=== PATIENT | female | born 1980 | race Caucasian/White ===

== ENCOUNTER 2021-05-26 17:09 | Emergency (ER) | payer MEDICAID, SELFPAY ==
--- NOTE | 2021-05-26 | ECG_ITS ---
Test Reason : NUMBNESS Blood Pressure : / mmHG Vent. Rate : 088 BPM Atrial Rate : 088 BPM P-R Int : 154 ms QRS Dur : 082 ms QT Int : 392 ms P-R-T Axes : 047 105 034 degrees QTc Int : 474 ms Normal sinus rhythm Rightward axis Left atrial enlargement Borderline ECG No previous ECGs available Referred By: Generic ED Physician Electronically Signed By:VEDA TRENT MD
[2021-05-26 17:21] VITALS: BP 180/110; PULSE 106; O2SAT 98
[2021-05-26 20:32] VITALS: BP 160/93; PULSE 91; RESP 18; TEMP 36.8; O2SAT 100; BMI 34.7
[2021-05-26] MEDS: Acetaminophen 325 MG TABLET 650 MG PO (20:42)
--- NOTE | 2021-05-26 21:30 | ED_ITS ---
HPI - General Adult General Chief complaint: General Medical Stated complaint: HEADACHE/NUMBNESS Time Seen by Provider: 05/26/21 21:27 Source: patient Mode of arrival: ambulatory Limitations: no limitations History of Present Illness MD complaint: depressed under stress Onset (ago): month(s) Severity: moderate Relieving factors: none Exacerbating factors: other (life stress) Associated symptoms: denies other symptoms Treatments prior to arrival: none Related Data Previous Rx's Medication Instructions Recorded lorazepam 1 mg tablet (Ativan) 1 mg PO BID PRN #10 tab 05/26/21 Allergies Allergy/AdvReac Type Severity Reaction Status Date / Time seafood Allergy Severe Anaphylaxis Verified 05/26/21 20:32 Review of Systems Review of Systems: Constitutional : No Fever, No Chills ENT/Mouth : No Ear Pain, No Nasal Congestion, No sore throat Eyes: No Eye Pain, No Swelling, No Redness Cardiovascular : No Chest Pain, No SOB Respiratory : No Cough, No Sputum, No Dyspnea Gastrointestinal : No Nausea, No Vomiting, No Diarrhea, No Hematochezia, No Melena Genitourinary : No Dysuria, No Urinary Frequency, No Hematuria Musculoskeletal : No Myalgias Skin : No Skin Lesions, No rash Neuro : No Weakness, No Numbness, No Paresthesias, No Dizziness, No Headache Psych : positive Anxiety, positive Depression, no SI/HI Heme/Lymph: No Lymphadenopathy Endocrine : No Polyuria, No Polydipsia All other systems reviewed and are negative [facility] Past Medical History Attestation statement: The following information was validated with the patient. Medical History Anxiety Bipolar disorder Depression Diabetes Hypertension Migraines PTSD (post-traumatic stress disorder) Social History Social History (Updated 05/26/21 @ 22:04 by Marry Boswell DO) Patient Tobacco Use Status: Never used Tobacco Advance Directives: No Advance Directives Information Provided: Yes Patient : No Physical Exam Vital Signs: Vital Signs: Last Vital Signs Temp 98.3 F 05/26/21 20:32 Pulse 91 05/26/21 20:32 Resp 18 05/26/21 20:32 BP 160/93 H 05/26/21 20:32 Pulse Ox 100 05/26/21 20:32 Body Mass Index 34.7 Appearance: Alert. Oriented X3. No acute distress. Eyes: Pupils equal, round and reactive to light. ENT: Pharynx normal. Neck: Normal inspection. Neck supple. CVS: Normal heart rate and rhythm. Pulses normal. Respiratory: No respiratory distress. Breath sounds normal. Abdomen: Soft and non-tender. Skin: Skin warm and dry. Normal skin color. Normal skin turgor. Extremities: No lower extremity edema. No calf ttp Neuro: Oriented X 3. No motor deficit. No sensory deficit. Course Course Course Narrative: treat anxiety, partial program in the works, care team will refer to therapy Medical Decision Making MDM Narrative Medical decision making narrative: 40 yo female under sig stress here with depression due to difficult life situations - she has no active SI but has had some fleeting thoughts but not self harm - at this time will offer care team consult Discharge Plan Discharge Clinical Impression: Anxiety Patient Disposition: Home, Self-Care Instructions: Anxiety (ED) Additional Instructions: return to ED for any worsening symptoms or concerns please follow up with the CARE team Prescriptions: New lorazepam [Ativan] 1 mg tablet 1 mg PO BID PRN (Reason: anxiety) Qty: 10 RF: 0
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
[2021-05-26] MEDS: LORazepam 1 MG TABLET PO (23:16)
== END 2021-05-26 23:17 | disposition home or self-care (01) ==
PROVIDERS: Emergency Provider Emergency Medicine
DX: R51.9 Headache, unspecified (principal); F33.1 Major depressive disorder, recurrent, moderate; F43.9 Reaction to severe stress, unspecified; Z71.6 Tobacco abuse counseling; Z79.899 Other long term (current) drug therapy
CPT/HCPCS: 93005; 99283

== ENCOUNTER 2022-05-16 16:48 | Emergency (ER) | payer MEDICAID, SELFPAY ==
--- NOTE | ~2022-05-16 | XR_ITS ---
EXAMINATION: THORACIC SPINE AND RIGHT ANKLE. CLINICAL INFORMATION: Fall. Pain. COMPARISON: None TECHNIQUE: Thoracic spine 3 views. Right ankle 3 views. FINDINGS: Thoracic spine: There is normal thoracic kyphosis. The vertebral heights, alignment and disc heights are normal. There is no visible acute fracture, dislocation or subluxation seen. There is mild ventral spondylosis. Right ankle: The ankle mortise and the subtalar joints are normal. No visible fracture, dislocation or subluxation seen. A small retrocalcaneal heel enthesophyte. There is mild lateral malleolar soft tissue swelling XR/XR ankle RT min 3V IMPRESSION: No acute fracture or dislocation thoracic spine. There is mild spondylosis lower dorsal spine. No acute fracture or dislocation right ankle. There is mild lateral malleolar soft tissue swelling likely ligamentous injury. There is a retrocalcaneal small enthesophyte..
--- NOTE | ~2022-05-16 | XR_ITS ---
EXAMINATION: THORACIC SPINE AND RIGHT ANKLE. CLINICAL INFORMATION: Fall. Pain. COMPARISON: None TECHNIQUE: Thoracic spine 3 views. Right ankle 3 views. FINDINGS: Thoracic spine: There is normal thoracic kyphosis. The vertebral heights, alignment and disc heights are normal. There is no visible acute fracture, dislocation or subluxation seen. There is mild ventral spondylosis. Right ankle: The ankle mortise and the subtalar joints are normal. No visible fracture, dislocation or subluxation seen. A small retrocalcaneal heel enthesophyte. There is mild lateral malleolar soft tissue swelling XR/XR thoracic spine 3V IMPRESSION: No acute fracture or dislocation thoracic spine. There is mild spondylosis lower dorsal spine. No acute fracture or dislocation right ankle. There is mild lateral malleolar soft tissue swelling likely ligamentous injury. There is a retrocalcaneal small enthesophyte..
[2022-05-16 18:06] VITALS: BP 141/83; PULSE 83; RESP 16; TEMP 36.3; O2SAT 97; BMI 32.8
--- NOTE | 2022-05-16 21:02 | ED.GENADULT ---
HPI - General Adult General Chief complaint: Fall Stated complaint: Fall , right ankle swollen , back apin Time Seen by Provider: 05/16/22 20:44 Source: patient Mode of arrival: ambulatory Limitations: no limitations History of Present Illness HPI narrative: Patient comes to emergency room complaining right ankle pain and swelling in back pain in the midback. Patient states that she had a mechanical fall, fell down 3 steps. Patient denies hitting her head or loss of consciousness. Patient states that she took gabapentin and ibuprofen at home. Patient did not hit her head, no loss of consciousness, patient is not on any blood thinners. Related Data Previous Rx's Medication Instructions Recorded lorazepam 1 mg tablet (Ativan) 1 mg PO BID PRN anxiety #10 tabs 05/26/21 cyclobenzaprine 5 mg tablet 5 mg PO BID PRN muscle spasm #6 05/16/22 tabs ketorolac 10 mg tablet 10 mg PO BID PRN pain #6 tabs 05/16/22 Allergies Allergy/AdvReac Type Severity Reaction Status Date / Time seafood Allergy Severe Anaphylaxis Verified 05/26/21 20:32 Review of Systems Review of Systems: Constitutional : No Weight loss, No Fever, No Chills, No Night Sweats, No Fatigue, No Malaise ENT/Mouth : No Hearing loss, No Ear Pain, No Nasal Congestion, No Sinus Pain, No Hoarseness, No sore throat, No Rhinorrhea, No Swallowing Difficulty Eyes: No Eye Pain, No Swelling, No Redness, No Foreign Body, No Discharge, No Vision Changes Cardiovascular : No Chest Pain, No SOB, No Dyspnea on Exertion, No Orthopnea, No Edema, No Palpitations Respiratory : No Cough, No Sputum, No Wheezing, No Smoke Exposure, No Dyspnea Gastrointestinal : No Nausea, No Vomiting, No Diarrhea, No Constipation, No abdominal Pain, No Hematochezia, No Melena Genitourinary : no irregular bleeding, No Dysuria, No Urinary Frequency, No Hematuria, No Urinary Incontinence, No Urgency, No Flank Pain, No Urinary Flow Changes, No Hesitancy Musculoskeletal : Complaining of right ankle pain and middle back pain No Myalgias, No Joint Swelling Skin : No Skin Lesions, No rash Neuro : No Weakness, No Numbness, No Paresthesias, No Loss of Consciousness, No Dizziness, No Headache Psych : No Anxiety/Panic, No Depression, No SI/HI/AH/VH, No Social Issues, Heme/Lymph: No Bruising, No Bleeding,No Lymphadenopathy Endocrine : No Polyuria, No Polydipsia, No Temperature Intolerance [facility] Past Medical History Medical History Anxiety Bipolar disorder Depression Diabetes Hypertension Migraines PTSD (post-traumatic stress disorder) Social History Social History (Updated 05/26/21 @ 22:04 by Jacqueline Boswell DO) Patient Tobacco Use Status: Never used Tobacco Advance Directives: No Physical Exam ED Vital Signs: Vital Signs - 24 hr 05/16/22 18:06 Temperature 97.4 F Pulse Rate 83 Respiratory Rate 16 Blood Pressure 141/83 H Pulse Oximetry 97 Oxygen Delivery Method Room Air BMI result Body Mass Index 32.8 Const Other: Appearance: Alert. Oriented X3. No acute distress. Eyes: Pupils equal, round and reactive to light. ENT: Pharynx normal. Neck: Normal inspection. Neck supple. No lymph nodes noted. No crepitus CVS: Normal heart rate and rhythm. Pulses normal. Normal S1 and S2 Respiratory: No respiratory distress. Breath sounds normal. No Wheezing. No rales Abdomen: Soft and nontender. No rigidity. No distention. Back: No palpable step-offs, no C-spine tenderness or thoracic spine tenderness. Skin: Skin warm and dry. Normal skin color. Normal skin turgor. Extremities: No lower extremity edema. Patient does have swelling along the right lateral malleolus, no significant pain to palpation, patient is able to bear weight and walk with steady gait Neuro: Oriented X 3. No motor deficit. No sensory deficit. Moving all extremities. No slurred speech. CN 2 through 12 grossly intact Psych: calm, cooperative, normal affect Course Course Course Narrative: I discussed the x-rays with the patient, no acute findings. Patient's pain likely musculoskeletal prove patient was given 1 dose of IM Toradol. Medical Decision Making Imaging Data Thoracic spine and right ankle x-rays: Radiologist's impression: [address] [address] XRay Report Signed Patient: Tangela Clinton MR#: [id number] : 1980 Acct:[id number] Age/Sex: 41 / F ADM Date: 05/16/22 Loc: HO.ED Attending Dr: Ordering Physician: Saw ED Physician Date of Service: 05/16/22 Procedure(s): XR thoracic spine 3V Accession Number(s): [id number] cc: Generic ED Physician~ EXAMINATION: THORACIC SPINE AND RIGHT ANKLE. CLINICAL INFORMATION: Fall. Pain.? COMPARISON: None? TECHNIQUE: Thoracic spine 3 views. Right ankle 3 views.? FINDINGS: Thoracic spine: There is normal thoracic kyphosis. The vertebral heights, alignment and disc heights are normal. There is no visible acute fracture, dislocation or subluxation seen. There is mild ventral spondylosis. Right ankle: The ankle mortise and the subtalar joints are normal. No visible fracture, dislocation or subluxation seen. A small retrocalcaneal heel enthesophyte. There is mild lateral malleolar soft tissue swelling XR/XR thoracic spine 3V IMPRESSION: No acute fracture or dislocation thoracic spine. There is mild spondylosis lower dorsal spine. ? No acute fracture or dislocation right ankle. There is mild lateral malleolar soft tissue swelling likely ligamentous injury. There is a retrocalcaneal small enthesophyte.. Discharge Plan Discharge Clinical Impression: Fall, Ankle pain, right, Back pain, thoracic Patient Disposition: Home, Self-Care Instructions: Back Pain (ED), Swollen Joint (ED) Additional Instructions: Please follow-up with your primary care physician tomorrow. If you have any worsening or new symptoms, please return to the emergency room or call 911 Prescriptions: New ketorolac 10 mg tablet 10 mg PO BID PRN (Reason: pain) Qty: 6 0RF Rx Instructions: Do not use this medication with ibuprofen/NSAIDs. Only use Tylenol if needed cyclobenzaprine 5 mg tablet 5 mg PO BID PRN (Reason: muscle spasm) Qty: 6 0RF No Action lorazepam [Ativan] 1 mg tablet 1 mg PO BID PRN (Reason: anxiety) Qty: 10 0RF
[2022-05-16] MEDS: Ketorolac Tromethamine 60 MG/2 ML VIAL IM (21:07)
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
== END 2022-05-16 21:32 | disposition home or self-care (01) ==
PROVIDERS: Emergency Provider Emergency Medicine; PCP Nurse Practitioner Family
DX: M25.571 Pain in right ankle and joints of right foot (principal); M54.50 Low back pain, unspecified; M54.6 Pain in thoracic spine
CPT/HCPCS: 72072; 73610; 96372; 99283; 99284; J1885

== ENCOUNTER 2022-06-19 19:28 | Emergency (ER) | payer MEDICAID, SELFPAY ==
[2022-06-19 20:46] VITALS: BP 154/89; PULSE 99; RESP 18; TEMP 36.7; O2SAT 99; BMI 32.2
[2022-06-20 00:46] VITALS: BP 126/77; PULSE 86; RESP 16; TEMP 36.7; O2SAT 98
[2022-06-20 04:00] VITALS: BP 136/78; PULSE 86; RESP 17; TEMP 36.9; O2SAT 98
--- NOTE | 2022-06-20 04:35 | ED_ITS ---
HPI - Skin/Abscess/Foreign Bdy General Chief complaint: Skin/Abscess/Foreign Body Stated complaint: ?vaginal cyst Time Seen by Provider: 06/20/22 02:18 Source: patient Mode of arrival: ambulatory Limitations: no limitations History of Present Illness HPI narrative: 41-year-old female came in for evaluation of abscess in the pubic area on right side after shaved last week, patient with known history of abscesses in different areas of her body. No fever, no chills. Symptoms started 4 days ago. No risk for STD, no vaginal discharge. Related Data Previous Rx's Medication Instructions Recorded lorazepam 1 mg tablet (Ativan) 1 mg PO BID PRN anxiety #10 tabs 05/26/21 cyclobenzaprine 5 mg tablet 5 mg PO BID PRN muscle spasm #6 05/16/22 tabs ketorolac 10 mg tablet 10 mg PO BID PRN pain #6 tabs 05/16/22 doxycycline hyclate 100 mg capsule 100 mg PO BID #14 caps 06/20/22 Allergies Allergy/AdvReac Type Severity Reaction Status Date / Time seafood Allergy Severe Anaphylaxis Verified 06/19/22 20:52 Review of Systems Review of Systems: All other systems are reviewed and are negative Constitutional: Reports as per HPI and Reports no additional constitutional complaints Eyes: Reports as per HPI and Reports no additional eye complaints Reports system reviewed and no additional complaints, except as documented Cardiovascular: Reports as per HPI and Reports no additional cardiovascular complaints Respiratory: Reports as per HPI and Reports no additional respiratory complaints Gastrointestinal: Reports as per HPI and Reports no additional gastrointestinal complaints Genitourinary: Reports no additional female genitourinary complaints Musculoskeletal: Reports no additional musculoskeletal complaints Skin/Breast: Reports system reviewed and no additional complaints, except as docu Psychiatric: Reports no additional psychiatric complaints Endocrine: Reports no additional endocrine complaints Hematologic/Lymphatic: Reports no additional hematologic/lymphatic complaints Allergic/Immunologic: Reports no additional allergic/immunologic complaints Reports system reviewed and no additional complaints, except as documented and Reports Abnormal speech present [facility] Past Medical History Medical History Anxiety Bipolar disorder Depression Diabetes Hypertension Migraines PTSD (post-traumatic stress disorder) Social History Social History Patient Tobacco Use Status: Never used Tobacco Advance Directives: No Advance Directives Information Provided: No Physical Exam Vital Signs: Vital Signs: Last Vital Signs Temp 98.5 F 06/20/22 04:00 Pulse 86 06/20/22 04:00 Resp 17 06/20/22 04:00 BP 136/78 06/20/22 04:00 Pulse Ox 98 06/20/22 04:00 O2 Del Method 06/20/22 04:00 BMI result Body Mass Index 32.2 Vital signs have been reviewed as appeared to be correct. Blood pressure normal. Heart rate normal. Respiration rate normal. Temperature normal. Oxygen saturation normal. Appearance: Alert. Oriented X3. No acute distress. Head: Normal external exam. Normocephalic. Atraumatic. No Mckinney signs noted. No raccoon eyes noted Eyes: PERRLA. EOMI. Conjunctiva and sclera normal. Eyelids normal. ENT: TM's Normal. Pharynx normal. Uvula midline. Moist mucous membranes. No trismus noted. No drooling noted. No muffled voice noted. Neck: Normal inspection. Neck supple. FROM. No adenopathy. Thyroid Normal. No meningeal signs. No neck mass noted. CVS: Normal heart rate and rhythm. Heart sound normal. No murmurs noted. Pulses normal throughout. Respiratory: No respiratory distress. Painless inspiration. Breath sounds normal. No wheezes/rales/rhonchi noted. Chest nontender. No accessory muscle usage noted or decreased air movement noted. Abdomen: Soft and nontender. Bowel sounds normal in all 4 quadrants. No distention noted. No organomegaly noted. No visible injury noted. Pelvic exam: 2 x 3 cm area of fluctuation with redness and tenderness on the right side of the pubic area just adjacent to the labia majora. Back: No CVA tenderness. Full range of motion noted. Skin: Skin warm and dry. Normal skin color. Normal skin turgor. No rashes/lesions/lacerations noted. Extremities: No lower extremity edema. Extremities exhibit normal range of motion. Extremities nontender. Neuro: Oriented X 3. Cranial nerve exam: II-XII are grossly intact No motor deficit. No sensory deficit. Reflexes normal. Course Course Course Narrative: 41-year-old female with right side pubic area abscess secondary to follic ulitis due to shaving hair. Status post I&D will start the patient on doxycycline and recommended Sitz bath. Instructed to follow-up with her OBGYN. Medications Administered Discontinued Medications Generic Name Dose Route Start Last Admin Trade Name Nashq PRN Reason Stop Dose Admin Doxycycline Hyclate 100 mg 06/20/22 04:17 06/20/22 04:36 Doxycycline Hyclate 100 Mg Tablet PO 06/20/22 04:18 100 mg ONCE ONE Administration Oxycodone HCl 5 mg 06/20/22 04:17 06/20/22 04:36 Oxycodone Hcl Immed Release 5 Mg Tablet PO 06/20/22 04:18 5 mg ONCE ONE Administration Procedures Abscess I/D Site: other ( Right perineum) Local Anesthetic: lidocaine 1% Amount of anesthesia used (mL): 3 Technique: incised with blade Amount of fluid expressed (mL): 5 Sent for culture/gram staining?: No Irrigation: No Packing used?: none Discharge Plan Discharge Clinical Impression: Abscess of skin or subcutaneous tissue Patient Disposition: Home, Self-Care Instructions: Abscess Incision and Drainage (DC) Additional Instructions: follow-up with your OBGYN. Sitz baths for 30 minutes every 8 hours. Prescriptions: New doxycycline hyclate 100 mg capsule 100 mg PO BID Qty: 14 0RF No Action lorazepam [Ativan] 1 mg tablet 1 mg PO BID PRN (Reason: anxiety) Qty: 10 0RF ketorolac 10 mg tablet 10 mg PO BID PRN (Reason: pain) Qty: 6 0RF Rx Instructions: Do not use this medication with ibuprofen/NSAIDs. Only use Tylenol if needed cyclobenzaprine 5 mg tablet 5 mg PO BID PRN (Reason: muscle spasm) Qty: 6 0RF Referrals: Luisa Walton NP [Primary Care Provider] -
[2022-06-20] MEDS: oxyCODONE HCl Immed Release 5 MG TABLET PO (04:36)
== END 2022-06-20 05:06 | disposition home or self-care (01) ==
PROVIDERS: Emergency Provider Emergency Medicine; PCP Nurse Practitioner Family
DX: L02.214 Cutaneous abscess of groin (principal); L73.9 Follicular disorder, unspecified; Z79.899 Other long term (current) drug therapy
CPT/HCPCS: 10060; 99283; 99284

== ENCOUNTER 2023-01-04 15:20 | Emergency (ER) | payer MEDICAID, SELFPAY ==
[2023-01-04 15:29] VITALS: BP 143/87; PULSE 99; RESP 17; TEMP 35.6; O2SAT 99; BMI 33.2
--- NOTE | 2023-01-04 15:31 | ED.GENADULT ---
HPI - General Adult General Chief complaint: Skin/Abscess/Foreign Body Stated complaint: abscess on bottom Time Seen by Provider: 01/04/23 15:37 Source: patient Mode of arrival: ambulatory Limitations: no limitations History of Present Illness HPI narrative: 42 yo female with a pmh of multiple abcesses, an DE, PCOS, HT, and diabetes presents with two days of three small abbesses in her perirectal region that are very painful with going to the bathroom and cleaning. She has frequently recurring abscesses requiring drainage. She has recently stopped shaving to prevent abscesses and underwent a colonoscopy and urology referral to workup the cause. She also endorses fever and chills. She denies chest pain or SOB. MD complaint: Buttocks abscesses Onset (ago): day(s) (2) Location: buttocks Severity: severe Severity scale (1-10): 8 Pain Consistency: constant Relieving factors: rest Exacerbating factors: other ( sitting, palpation) Associated symptoms: fever/chills Treatments prior to arrival: none Related Data Previous Rx's Medication Instructions Recorded lorazepam 1 mg tablet (Ativan) 1 mg PO BID PRN anxiety #10 tabs 05/26/21 cyclobenzaprine 5 mg tablet 5 mg PO BID PRN muscle spasm #6 05/16/22 tabs ketorolac 10 mg tablet 10 mg PO BID PRN pain #6 tabs 05/16/22 doxycycline hyclate 100 mg capsule 100 mg PO BID #14 caps 06/20/22 cephalexin 500 mg capsule 500 mg PO QID Abcess #30 caps 01/04/23 Allergies Allergy/AdvReac Type Severity Reaction Status Date / Time seafood Allergy Severe Anaphylaxis Verified 06/19/22 20:52 Review of Systems Review of Systems: Yes all other systems are reviewed and are negative [facility] Past Medical History Medical History Anxiety Bipolar disorder Depression Diabetes Hypertension Migraines PTSD (post-traumatic stress disorder) Social History Social History Patient Tobacco Use Status: Never used Tobacco Advance Directives: No Advance Directives Information Provided: No Physical Exam ED Vital Signs: Vital Signs - 24 hr 01/04/23 15:29 Temperature 96.0 F L Pulse Rate 99 Respiratory Rate 17 Blood Pressure 143/87 H Pulse Oximetry 99 Oxygen Delivery Method Room Air BMI result Body Mass Index 33.2 Appearance: Alert. Oriented X3. No acute distress. Head: normocephalic, atraumatic. Neck: Normal inspection. CVS: Normal heart rate and rhythm. Pulses normal. Respiratory: No respiratory distress. Breath sounds normal. Skin: Skin warm and dry. Normal skin color. Normal skin turgor. No rashes. /Rectal: Erythema surrounding the rectal with small abcess 2x1cm on her left perineum that is purulence at the center. We did a rectal exam and the abcess did not invade the anus. Neuro/psych: Oriented X 3. No motor deficit. No sensory deficit. Normal speech and cognition. Course Course Course Narrative: RME performed by Iona Minor PA-C. Patient is a 42 year old female presenting to the emergency department with a genital abscess. Patient placed back in the waiting room pending room availability. Medications Administered Discontinued Medications Generic Name Dose Route Start Last Admin Trade Name Freq PRN Reason Stop Dose Admin Lidocaine HCl 1 appl 01/04/23 16:00 01/04/23 16:16 Lidocaine 4 % Cream Kit TOPICAL 01/04/23 16:01 1 appl ONCE ONE Administration Protocol Procedures Abscess I/D Site: luisana-rectal Side (if applicable): left Local Anesthetic: other anesthetic (LMX) Technique: incised with blade Sent for culture/gram staining?: No Irrigation: No Packing used?: none Complications: bleeding Medical Decision Making Medical Decision Making MDM Narrative: Patient came in with complaints of abcsesses in her perineum for the last 2 days.. Upon evaluation only one purulent abcesses was noted, and it was about 2 cm and not invading the anus. It was very superficial. Given the small size, and that it was not invading the anus we did not believe the ID required the OR. We performed a small incision with a blade which drained the abscess and then bandaged the wound and sent her home with antibiotics. Differential Diagnosis Differential Diagnoses: The differential diagnosis associated with the presentation includes Superficial Abscess perirectal abscess cellulitis staph infection herpes genital warts External Record Review External record reviewed: Outpatient record, Prior outpatient labs and Prior outpatient radiology Prescription Management I considered prescription management with: Antibiotic Chronic Conditions Patient?s care impacted by: Diabetes Critical Care Time Critical Care Time Critical Care Time: No Discharge Plan Discharge Clinical Impression: Abscess of skin or subcutaneous tissue Patient Disposition: Home, Self-Care Instructions: Abscess Incision and Drainage (DC) Additional Instructions: You were seen for a perianal abscess. We performed an incision and drainage and sent you home with antibiotics. Please take one 500mg every 6 hours for 7 days. Please uses sits baths and keep the area warm and dry. Prescriptions: New cephalexin 500 mg capsule 500 mg PO QID Qty: 30 0RF No Action lorazepam [Ativan] 1 mg tablet 1 mg PO BID PRN (Reason: anxiety) Qty: 10 0RF ketorolac 10 mg tablet 10 mg PO BID PRN (Reason: pain) Qty: 6 0RF Rx Instructions: Do not use this medication with ibuprofen/NSAIDs. Only use Tylenol if needed cyclobenzaprine 5 mg tablet 5 mg PO BID PRN (Reason: muscle spasm) Qty: 6 0RF doxycycline hyclate 100 mg capsule 100 mg PO BID Qty: 14 0RF Interventions: ED Discharge Assessment Last Done: 01/04/23 17:26 Discharge Date/Time: 01/04/23 17:27
[2023-01-04] MEDS: Lidocaine 4 % Cream KIT 1 APPL TOPICAL (16:16)
== END 2023-01-04 17:27 | disposition home or self-care (01) ==
PROVIDERS: Emergency Provider Emergency Medicine; PCP Psychiatry & Neurology Psychiatry
DX: L02.31 Cutaneous abscess of buttock (principal); E11.9 Type 2 diabetes mellitus without complications; I10 Essential (primary) hypertension; F43.10 Post-traumatic stress disorder, unspecified; Z79.899 Other long term (current) drug therapy
CPT/HCPCS: 56405; 99282; 99284